=== PATIENT | female | born 1940 | race Caucasian/White ===

== ENCOUNTER 2018-03-29 10:51 | Emergency (ER) | payer OTHER ==
[~2018-03-29] VITALS: Ht 160 cm; Wt 63.5 kg
[2018-03-29 13:55] LABS: ABSOLUTE BASOPHIL COUNT 0 /CUMM (0.0-0.2); ABSOLUTE EOSINOPHIL COUNT 0.1 /CUMM (0.0-0.7); ABSOLUTE GRANULOCYTE CT 4.1 /CUMM (1.4-6.5); ABSOLUTE LYMPH COUNT 1.4 /CUMM (1.2-3.4); ABSOLUTE MONOCYTE COUNT 0.5 /CUMM (0.10-0.60); BASOPHIL % 0.5 % (0.0-2.0); EOSINOPHIL % 1.6 % (0-5); HEMATOCRIT 43.3 % (37-47); MEAN CORPUSCULAR HGB 29.5 PG (27.0-31.0); MEAN CORPUSCULAR HGB CONC 33.3 G/DL (33.0-37.0); MEAN CORPUSCULAR VOLUME 88.7 FL (81.0-99.0); MEAN PLATELET VOLUME 8.2 FL (7.4-10.4); PLATELET COUNT 271 /CUMM (130-400); RBC DISTRIBUTION WIDTH 14.4 % (11.5-14.5); RED BLOOD CELL CT 4.88 /CUMM (4.20-5.40); WHITE BLOOD CELL COUNT 6.1 /CUMM (4.8-10.8)
[2018-03-29 14:05] VITALS: BP 157/74
[2018-03-29] MEDS ORDERED: OMEPRAZOLE40 M1 PO (14:42)
[2018-03-29] MEDS ORDERED: MYRBETRIQ25 M1 PO (14:42)
[2018-03-29] MEDS ORDERED: VITAMIN C500 M6 PO (14:43)
[2018-03-29] MEDS ORDERED: CALTRATE 600 +1 EACH PO (14:43)
[2018-03-29] MEDS ORDERED: BIOTIN2500 MCG PO (14:44)
[2018-03-29] MEDS ORDERED: VITAMIN D1000 UNIT PO (14:44)
[2018-03-29] MEDS ORDERED: ASPIRIN EC81 M1 PO (14:44)
[2018-03-29] MEDS ORDERED: FISH OIL 1,2001 EACH PO (14:45)
--- NOTE | 2018-03-29 15:08 | CT SCAN REPORT ---
EXAMINATION: CT HEAD WITHOUT CONTRAST CLINICAL INFORMATION: Near syncope. COMPARISON: None TECHNIQUE: Contiguous axial imaging was performed from the skull base to vertex without intravenous administration of contrast. DLP: 531 mGy-cm FINDINGS: Brain parenchyma: Normal attenuation. [place]-white matter differentiation is well preserved. No evidence of an acute major vascular territory infarction, hemorrhage, mass or midline shift. Cerebrospinal fluid spaces: Normal. No hydrocephalus or extra-axial fluid collections. Cerebellum and brainstem: Unremarkable. The 4th ventricle is midline in position. The cerebellopontine angles are normal. Calvarium and temporomandibular joints: Calvarium is intact. Mastoid air cells and middle ear cavities are well aerated. Mild osteoarthritis of the TMJs. Paranasal sinuses and orbits: The visualized paranasal sinuses are clear. No acute findings in the visualized portions of the orbits. Other: No acute findings in the visualized extracranial soft tissues. IMPRESSION: No acute intracranial pathology.
[2018-03-29] MEDS ORDERED: MOTION SICKNESS25 M4 PO (15:34)
[2018-03-29] MEDS ORDERED: IMODIUM A-D2 M1 PO (15:34)
--- NOTE | 2018-03-29 15:36 | ED AMS/SEIZURE/WEAK/DIZZY ---
History of Present Illness General Chief Complaint: General Adult Stated Complaint: SIB FROM WALK IN FOR WEAKNESS, NOT FEELING WELL Source: patient Exam Limitations: no limitations Vital Signs & Intake/Output Vital Signs & Intake/Output Vital Signs Date Time Temp Pulse Resp B/P B/P Pulse O2 O2 Flow FiO2 Mean Ox Delivery Rate 03/29 1405 98.2 66 18 157/74 99 Room Air 03/29 1059 97.4 66 20 149/81 96 Room Air ED Intake and Output 03/30 0000 03/29 1200 Intake Total Output Total Balance Patient 140 lb Weight Weight Reported by Patient Measurement Method Allergies Coded Allergies: No Known Allergies (03/29/18) Reconcile Medications Ascorbate Calcium (Vitamin C) (Unknown Strength) TABLET (Unknown Dose) PO DAILY SUPPLEMENT (Reported) Aspirin (Ecotrin*) 81 MG TABLET. 1 TAB PO EOD HEART/BLOOD (Reported) Biotin (Unknown Strength) CAPSULE (Unknown Dose) PO DAILY SUPPLEMENT ( Reported) Calcium Carbonate/Vitamin D3 (Caltrate 600 + D Tablet) (Unknown Strength) TABLET (Unknown Dose) PO DAILY SUPPLEMENT (Reported) Cholecalciferol (Vitamin D3) (Vitamin D) 1,000 UNIT TABLET 1 TAB PO EOD SUPPLEMENT (Reported) Fish Oil/Dha/Epa (Fish Oil 1,200 MG Fish Oil) (Unknown Strength) CAPSULE ( Unknown Dose) PO DAILY SUPPLEMENT (Reported) Loperamide HCl (Imodium A-D) 2 MG TABLET 1 TAB PO PRN PRN Diarrhea Take 2 tabs PO now. Take 1 tablet as needed after a loose bowel movement. Max: 4 Tablets daily. Meclizine HCl (Motion Sickness Relief) 25 MG TAB.CHEW 1 TAB PO Q4-6 PRN Dizziness Mirabegron (Myrbetriq) 25 MG TAB.ER.24H 1 TAB PO DAILY BLADDER (Reported) Omeprazole 40 MG CAPSULE. 1 CAP PO DAILY GI (Reported) Triage Note: PT SIB WALK IN FOR WEAKNESS. PT STATES FOR THE PAST COUPLE WEEKS SHE HASN'T FELT RIGHT. PT DENIES CP/SOB. STATES SHE FEELS SHAKY AND LIGHTHEADED Triage Nurses Notes Reviewed? yes HPI: 77-year-old female with no significant past medical history presents to emergency department complaining of weakness and shakiness. Patient states the symptoms have been present for the past 4 weeks. The symptoms come and go. Patient often feels lightheaded like she is going to pass out. Symptoms resolved when she sits down. Today she woke up and had a large bowel movement. Shortly after when she went to stand up, she felt lightheaded. She then sat down and her symptoms resolved. She has been having intermittent bouts of watery diarrhea, typically 1-2 a day. She denies any chest pain or shortness of breath associated with the symptoms. No diaphoresis. Denies any recent fever or chills. Denies any kenia blood loss. No melena or blood in her stool. Denies abdominal pain, nausea, vomiting, or constipation. Denies headaches, numbness or tingling in her extremities, or vision changes. (Sterling Juarez PA-C) Past History Travel History Traveled to [place] past 21 day No Medical History Any Pertinent Medical History? none Surgical History Surgical History: none Psychosocial History What is your primary language Hungarian Tobacco Use: Never used ETOH Use: denies use Illicit Drug Use: denies illicit drug use Family History Hx Contributory? No (Sterling Juarez PA-C) Review of Systems Review of Systems Constitutional: Reports: no symptoms. EENTM: Reports: no symptoms. Respiratory: Reports: no symptoms. Cardiovascular: Reports: no symptoms. GI: Reports: no symptoms. Genitourinary: Reports: no symptoms. Musculoskeletal: Reports: no symptoms. Skin: Reports: no symptoms. Neurological/Psychological: Reports: see HPI. Hematologic/Endocrine: Reports: no symptoms. Immunologic/Allergic: Reports: no symptoms. All Other Systems: Reviewed and Negative (Sterling Juarez PA-C) Physical Exam Physical Exam General Appearance: well developed/nourished, no apparent distress Head: atraumatic, normal appearance Eyes: Bilateral: normal appearance, PERRL, EOMI. Ears, Nose, Throat: normal pharynx, normal ENT inspection, hearing grossly normal, moist mucus membranes Neck: normal inspection Respiratory: normal breath sounds, chest non-tender, no respiratory distress, quiet respiration, lungs clear Cardiovascular: regular rate/rhythm, No murmur, no LE edema Peripheral Pulses: 2+ radial (R), 2+ radial (L) Gastrointestinal: normal bowel sounds, soft, non-tender, No rebound or guarding, no palpable masses Extremities: normal range of motion, ambulatory with steady gait Neurologic/Psych: AXOX3, CN II-XII grossly intact, Strength 5/5 in bilateral upper and lower extremities, sensation grossly intact throughout, finger to nose and heel to ryan normal without ataxia, gait is steady, no pronator drift, speech fluent, DTR 2+ symmetric Reflexes: 2+: knee (R), knee (L). Skin: intact, normal color, warm/dry, No diaphoresis Core Measures ACS in differential dx? Yes CVA/TIA Diagnosis No Sepsis Present: No Sepsis Focused Exam Completed? No (Larry HILL,Sterling) Progress Differential Diagnosis: arrythmia, anemia, benign positional vertigo, CVA/stroke , dehydration, electrolyte imbalance, GI bleed, intracranial Hem., intracranial mass/tumor, presyncope, subarachnoid Hem., UTI/pyelo, vertebrobasilar insuff, orthostatic hypotension Plan of Care: Orders Procedure Date/time Status MISTAKE 03/29 1337 Active CULTURE,URINE 03/29 1336 Active URINALYSIS 03/29 1336 Complete TROPONIN LEVEL 03/29 1336 Complete COMPREHENSIVE METABOLIC PANEL 03/29 1336 Complete CREATINE PHOSPHOKINASE 03/29 1336 Complete CBC WITHOUT DIFFERENTIAL 03/29 1336 Complete EKG 03/29 1336 Active Laboratory Tests 03/29/18 1347: Anion Gap 10, Estimated GFR > 60, BUN/Creatinine Ratio 21.3, Glucose 108 H, Calcium 9.8, Total Bilirubin 0.6, AST 36, ALT 43, Alkaline Phosphatase 51, Creatine Kinase 45, Troponin I < 0.01, Total Protein 7.4, Albumin 4.6, Globulin 2.8, Albumin/Globulin Ratio 1.6, CBC w Diff NO MAN DIFF REQ, RBC 4.88, MCV 88.7, MCH 29.5, MCHC 33.3, RDW 14.4, MPV 8.2, Gran % 67.0, Lymphocytes % 22.4, Monocytes % 8.5, Eosinophils % 1.6, Basophils % 0.5, Absolute Granulocytes 4.1, Absolute Lymphocytes 1.4, Absolute Monocytes 0.5, Absolute Eosinophils 0.1, Absolute Basophils 0 03/29/18 1337: Urine Color YEL, Urine Clarity CLEAR, Urine pH 7.5, Ur Specific [place] 1.010, Urine Protein NEG, Urine Ketones TRACE H, Urine Nitrite NEG, Urine Bilirubin NEG, Urine Urobilinogen 0.2, Ur Leukocyte Esterase NEG, Ur Microscopic EXAM NOT REQUIRED, Urine Hemoglobin NEG, Urine Glucose NEG Microbiology 03/29 1337 URINE ROUT: Urine Culture - RECD Diagnostic Imaging: Viewed by Me: CT Scan. Discussed w/RAD: CT Scan. Radiology Impression: PATIENT: ARLIN OCAMPO PRESENT AGE: 77 PATIENT ACCOUNT NO: [id number] : 41 LOCATION: [facility] ORDERING PHYSICIAN: Sterling Juarez PA-C SERVICE DATE: 03/29/18 EXAM TYPE: CAT - CT HEAD WO IV CONTRAST EXAMINATION: CT HEAD WITHOUT CONTRAST CLINICAL INFORMATION: Near syncope. COMPARISON: None TECHNIQUE: Contiguous axial imaging was performed from the skull base to vertex without intravenous administration of contrast. DLP: 531 mGy-cm FINDINGS: Brain parenchyma: Normal attenuation. [place]-white matter differentiation is well preserved. No evidence of an acute major vascular territory infarction, hemorrhage, mass or midline shift. Cerebrospinal fluid spaces: Normal. No hydrocephalus or extra-axial fluid collections. Cerebellum and brainstem: Unremarkable. The 4th ventricle is midline in position. The cerebellopontine angles are normal. Calvarium and temporomandibular joints: Calvarium is intact. Mastoid air cells and middle ear cavities are well aerated. Mild osteoarthritis of the TMJs. Paranasal sinuses and orbits: The visualized paranasal sinuses are clear. No acute findings in the visualized portions of the orbits. Other: No acute findings in the visualized extracranial soft tissues. IMPRESSION: No acute intracranial pathology. DICTATED BY: Jacky Dorsey MD DATE/TIME DICTATED:03/29/181502 LAND SURVEYOR:MELISSA DATE/TIME TRANSCRIBED:03/29/181502 CONFIDENTIAL, DO NOT COPY WITHOUT APPROPRIATE AUTHORIZATION. <Electronically signed in Other Vendor System> SIGNED BY: Jacky Dorsey MD 03/29/181507 Initial ED EKG: nonspecific ST T wave chg, NSR at 57 BPM Prior EKG: unchanged Comments: 77-year-old female presenting with 4 weeks of intermittent dizziness/shakiness/ weakness. She was near syncope earlier today. Her symptoms resolved upon sitting down. Here in the emergency department she remains asymptomatic. She was monitored on equipment monitor phototypesetting without any evidence of arrhythmias. Her EKG was reviewed by ED attending Dr. Rivera and myself, normal sinus rhythm with nonspecific ST/T-wave changes. Her overall CT scan was negative. Her blood work is overall nonactionable. She had orthostatic vital signs which were within normal limits. Patient's blood pressure is low at baseline. She may have underlying orthostatic hypotension. She may have underlying vertigo. Patient also may be dehydrated due to recent bouts of diarrhea. Overall of low concern for CVA/TIA, ICH, ACS, acute abdomen. Patient was given a scopolamine patch. We will also give meclizine for dizziness. Imodium for diarrhea. She should follow-up with her doctor within 48 hours. Return immediately with any symptoms. She is in agreement with plan of care. Discussed with Dr. Rivera. (Sterling Juarez PA-C) Departure Departure Disposition: HOME OR SELF CARE Condition: Stable Clinical Impression Primary Impression: Dizziness Secondary Impressions: Diarrhea Qualifiers: Diarrhea type: unspecified type Qualified Code: R19.7 - Diarrhea, unspecified Near syncope Referrals: Marcos ADORNO,Emiliana Carrillo (PCP/Family) Additional Instructions: Take meclizine as needed for dizziness. You can wear the scopolamine patch for 72 hours. Take Imodium as needed for diarrhea. Return to the emergency department with any new or worsening symptoms including headache, vision changes , nausea, vomiting, etc. Please go over all results of today's visit with your primary care doctor. Contact your primary care doctor to let them know you were here in the emergency room. There may be nonspecific findings which may not be related to your visit today here in the emergency room but may require further evaluation and chronic monitoring by your primary care doctor. If you had a laceration today the chance of foreign body always remains. You should follow-up with your primary care doctor for recheck in 3-5 days for a wound check. If you had an x-ray done there is a chance that a fracture could have been missed on initial read and you should follow-up with your primary care doctor for repeat x-rays if symptoms persist. If your blood pressure was elevated here in the emergency room please have rechecked by yovani primary care doctor within the next 48. If you were prescribed a narcotic here in the emergency room or any type of controlled substances you're not allowed to drive while taking this medication or operate any type of heavy machinery. Narcotics can make you feel lightheaded dizziness nausea and can cause constipation. You may need to forklift picker a stool softener. Thank you for choosing [facility] emergency room. Please return to the emergency room immediately if you have any other concerns worsening of symptoms. Departure Forms: Customer Survey General Discharge Information Prescriptions: Current Visit Scripts Meclizine HCl (Motion Sickness Relief) 1 TAB PO Q4-6 PRN Dizziness #20 TAB Loperamide HCl (Imodium A-D) 1 TAB PO PRN PRN Diarrhea #20 TAB Take 2 tabs PO now. Take 1 tablet as needed after a loose bowel movement. Max: 4 Tablets daily. (Larry HILL,Sterling) PA/COMMUTATOR V RING ASSEMBLER Co-Sign Statement Statement: ED Attending supervision documentation- x I saw and evaluated the patient. I have also reviewed all the pertinent lab results and diagnostic results. I agree with the findings and the plan of care as documented in the PA's/COMMUTATOR V RING ASSEMBLER's documentation. [] I have reviewed the ED Record and agree with the PA's/COMMUTATOR V RING ASSEMBLER's documentation. [] Additions or exceptions (if any) to the PAs/COMMUTATOR V RING ASSEMBLER's note and plan are summarized below: [] (Nicole ADORNO,Roland)
== END 2018-03-29 15:41 ==
LOC: ERH 10:51
PROVIDERS: Physician Assistant
DX: R42 Dizziness and giddiness (principal); R19.7 Diarrhea, unspecified; R55 Syncope and collapse; R53.1 Weakness
CPT/HCPCS: 81003; 87086; 93005; 93010

== ENCOUNTER 2018-04-08 05:49 | Emergency (ER) | payer OTHER ==
[~2018-04-08] VITALS: Ht 157.5 cm; Wt 65.8 kg
[~2018-04-08 05:49] MED LIST: ASPIRIN EC81 M1 PO; BIOTIN2500 MCG PO; CALTRATE 600 +1 EACH PO; FISH OIL 1,2001 EACH PO; IMODIUM A-D2 M1 PO; MOTION SICKNESS25 M4 PO; MYRBETRIQ25 M1 PO; OMEPRAZOLE40 M1 PO; VITAMIN C500 M6 PO; VITAMIN D1000 UNIT PO
--- NOTE | 2018-04-08 06:07 | ED GENERAL ADULT ---
See Addendum History of Present Illness General Chief Complaint: General Adult Stated Complaint: SHE NEEDS TO BE ADMITED THIS IS THE 3RD TIME Source: patient, family, old records Exam Limitations: no limitations Vital Signs & Intake/Output Vital Signs & Intake/Output Vital Signs Date Time Temp Pulse Resp B/P B/P Pulse O2 O2 Flow FiO2 Mean Ox Delivery Rate 04/08 0800 97.8 72 20 117/60 99 Room Air 04/08 0559 97 Room Air 04/08 0556 98.3 75 18 166/74 99 Room Air Allergies Coded Allergies: No Known Allergies (03/29/18) Reconcile Medications Ascorbate Calcium (Vitamin C) (Unknown Strength) TABLET (Unknown Dose) PO DAILY SUPPLEMENT (Reported) Aspirin (Ecotrin*) 81 MG TABLET. 1 TAB PO EOD HEART/BLOOD (Reported) Biotin (Unknown Strength) CAPSULE (Unknown Dose) PO DAILY SUPPLEMENT ( Reported) Calcium Carbonate/Vitamin D3 (Caltrate 600 + D Tablet) (Unknown Strength) TABLET (Unknown Dose) PO DAILY SUPPLEMENT (Reported) Cholecalciferol (Vitamin D3) (Vitamin D) 1,000 UNIT TABLET 1 TAB PO EOD SUPPLEMENT (Reported) Fish Oil/Dha/Epa (Fish Oil 1,200 MG Fish Oil) (Unknown Strength) CAPSULE ( Unknown Dose) PO DAILY SUPPLEMENT (Reported) Loperamide HCl (Imodium A-D) 2 MG TABLET 1 TAB PO PRN PRN Diarrhea Take 2 tabs PO now. Take 1 tablet as needed after a loose bowel movement. Max: 4 Tablets daily. Meclizine HCl (Motion Sickness Relief) 25 MG TAB.CHEW 1 TAB PO Q4-6 PRN Dizziness Mirabegron (Myrbetriq) 25 MG TAB.ER.24H 1 TAB PO DAILY BLADDER (Reported) Omeprazole 40 MG CAPSULE. 1 CAP PO DAILY GI (Reported) Triage Note: PT FROM HOME C/O "SHAKING AND LIGHTHEADEDNESS" PER PT. PTS STATES "THIS IS THE 3RD TIME SHE HAS BEEN HERE WITHIN A FEW DAYS SHE NEEDS TO BE ADMITTED THIS IS CRAZY" PT IS A&0X3. PT APPEARS TO HAVE NO ACUTE DISTRESS NOTED. PT HAS +VALADEZ, PT MEDICATED AT HOME WITH 650MG TYLENOL PO AT 0500. DENIES N/V, CP, SOB, BILATERAL ARM NUMBNESS/TINGLING, JAW OR BACK PAIN. DR HALE IN FOR EVAL Triage Nurses Notes Reviewed? yes HPI: Patient returns to the emergency department because she still feels shaky and has no appetite. This is patient's third visit here in the past 10 days. Patient states that when she comes here and gets IV fluids she feels better and then goes home and then during the night she wakes up feeling very shaky and she is very concerned by it. Patient states that she also has anorexia. She denies any abdominal pain. There is no nausea or vomiting. There is no constipation or diarrhea. There are no fevers or chills. She states that she just has no desire to eat. Patient denies any suicidal or homicidal ideations. (Cortney ADORNO,Paul Silver) Past History Travel History Traveled to [place] past 21 day No Medical History Any Pertinent Medical History? none Neurological: NONE EENT: NONE Cardiovascular: NONE Respiratory: NONE Gastrointestinal: NONE Hepatic: NONE Renal: NONE Musculoskeletal: NONE Psychiatric: NONE Endocrine: NONE Blood Disorders: NONE Cancer(s): NONE LEARNING COORDINATOR/Reproductive: NONE Surgical History Surgical History: none Psychosocial History What is your primary language Mongolian Tobacco Use: Quit >30 days ago ETOH Use: denies use Illicit Drug Use: denies illicit drug use Family History Hx Contributory? No (Cortney ADORNO,Paul Silver) Review of Systems Review of Systems Constitutional: Reports: see HPI, unexplained weight loss. EENTM: Reports: no symptoms. Respiratory: Reports: no symptoms. Cardiovascular: Reports: no symptoms. GI: Reports: no symptoms. Genitourinary: Reports: no symptoms. Musculoskeletal: Reports: no symptoms. Skin: Reports: no symptoms. Neurological/Psychological: Reports: see HPI, anxiety. Hematologic/Endocrine: Reports: no symptoms. Immunologic/Allergic: Reports: no symptoms. All Other Systems: Reviewed and Negative (Cortney ADORNO,Paul Silver) Physical Exam Physical Exam General Appearance: well developed/nourished, alert, awake, anxious Head: atraumatic, normal appearance Eyes: Bilateral: PERRL, EOMI. Ears, Nose, Throat: normal pharynx, normal ENT inspection Neck: normal inspection, supple, full range of motion Respiratory: normal breath sounds, chest non-tender, no respiratory distress, lungs clear Cardiovascular: regular rate/rhythm, normal peripheral pulses Gastrointestinal: normal bowel sounds, soft, non-tender, no organomegaly Back: normal inspection, normal range of motion Extremities: normal inspection, normal capillary refill, normal range of motion, no edema Neurologic/Psych: no motor/sensory deficits, awake, alert, oriented x 3, normal mood/affect Skin: intact, normal color, warm/dry Lymphatic: no anterior cervical mirta Core Measures ACS in differential dx? No CVA/TIA Diagnosis: No Sepsis Present: No Sepsis Focused Exam Completed? No (Cortney ADORNO,Paul Silver) Progress Differential Diagnoses I considered the following diagnoses in my evaluation of the patient: [Anxiety, cancer, intrathoracic or intra-abdominal pathology] Plan of Care: Orders Procedure Date/time Status Add-on Test (ER Only) 04/08 817 Active URINE DRUG SCREEN FOR ER ONLY 04/08 817 Active ED CRISIS PSYCH CONSULT 04/08 712 Active TROPONIN LEVEL 04/08 618 Complete ETHANOL 04/08 618 Complete EKG 04/08 609 Active COMPREHENSIVE METABOLIC PANEL 04/08 606 Complete CBC WITHOUT DIFFERENTIAL 04/08 606 Complete Laboratory Tests 04/08/18617: Anion Gap 10, Estimated GFR > 60, BUN/Creatinine Ratio 20.0, Glucose 107 H, Calcium 9.3, Total Bilirubin 0.6, AST 29, ALT 34, Alkaline Phosphatase 45, Troponin I < 0.01, Total Protein 6.2 L, Albumin 3.8, Globulin 2.4, Albumin/ Globulin Ratio 1.6, CBC w Diff NO MAN DIFF REQ, RBC 4.51, MCV 88.4, MCH 29.9, MCHC 33.8, RDW 13.4, MPV 8.6, Gran % 63.7, Lymphocytes % 22.9, Monocytes % 11.2 H, Eosinophils % 1.8, Basophils % 0.4, Absolute Granulocytes 3.9, Absolute Lymphocytes 1.4, Absolute Monocytes 0.7 H, Absolute Eosinophils 0.1, Absolute Basophils 0, Serum Alcohol < 10.0 04/08/18608: Troponin I Cancelled Diagnostic Imaging: Viewed by Me: CT Scan. Discussed w/RAD: CT Scan. Initial ED EKG: NSR, nonspecific ST T wave chg Hand-Off Endorsed To: Pacheco Neely DO Endorsed Time: 0700 Pending: CT, consult, labs (Cortney ADORNO,Paul Silver) Departure Departure Disposition: HOME OR SELF CARE Condition: Stable Clinical Impression Primary Impression: Anxiety Referrals: Marcos ADORNO,Emiliana Carrillo (PCP/Family) Departure Forms: Customer Survey General Discharge Information (Cortney ADORNO,Paul Silver) Departure Comments 04/08/18 10:11 AM 77-year-old female was signed out to me by Dr. Hale. She is pending crisis evaluation. Labs are unremarkable. EKG scan of the chest abdomen and pelvis essentially unremarkable other than small pericardial effusion. (Chin OWEN,Pacheco Butler) Critical Care Note Critical Care Note Critical Care Time: non-applicable (Cortney ADORNO,Paul Silver)
[2018-04-08 06:29] LABS: ABSOLUTE BASOPHIL COUNT 0 /CUMM (0.0-0.2); ABSOLUTE EOSINOPHIL COUNT 0.1 /CUMM (0.0-0.7); ABSOLUTE GRANULOCYTE CT 3.9 /CUMM (1.4-6.5); ABSOLUTE LYMPH COUNT 1.4 /CUMM (1.2-3.4); ABSOLUTE MONOCYTE COUNT 0.7 /CUMM (0.10-0.60); BASOPHIL % 0.4 % (0.0-2.0); EOSINOPHIL % 1.8 % (0-5); GRANULOCYTE % 63.7 % (42.2-75.2); HEMATOCRIT 39.9 % (37-47); MEAN CORPUSCULAR HGB 29.9 PG (27.0-31.0); MEAN CORPUSCULAR HGB CONC 33.8 G/DL (33.0-37.0); MEAN CORPUSCULAR VOLUME 88.4 FL (81.0-99.0); MEAN PLATELET VOLUME 8.6 FL (7.4-10.4); PLATELET COUNT 211 /CUMM (130-400); RBC DISTRIBUTION WIDTH 13.4 % (11.5-14.5); RED BLOOD CELL CT 4.51 /CUMM (4.20-5.40); WHITE BLOOD CELL COUNT 6.1 /CUMM (4.8-10.8)
--- NOTE | 2018-04-08 07:25 | CT SCAN REPORT ---
EXAMINATION: CT CHEST, ABDOMEN AND PELVIS CLINICAL INFORMATION: Weight loss. Anxiety. Possible cancer. COMPARISON: CT head 03/29/2018 TECHNIQUE: IV contrast enhanced CT of the chest, abdomen pelvis. Intravenous contrast: Optiray 320 95 mL. DLP: 370 mGy-cm FINDINGS: CT chest: No mediastinal or axillary lymphadenopathy is identified. Mild scattered aortic calcific atherosclerosis is noted. The main and central pulmonary arteries are grossly normal in appearance. The heart size is grossly normal. Small pericardial effusion is present measuring 7 mm in maximum width. Mild biapical pleural parenchymal scarring of the lungs is noted. A coarse linear benign-appearing reticular density is present in the left lung base and may represent subpleural scarring or possibly platelike atelectasis. No suspicious pulmonary nodules are noted. No pulmonary airspace disease is identified. CT abdomen and pelvis: The liver, gallbladder, spleen, stomach, pancreas, adrenal glands and kidneys are normal in appearance. Mild scattered calcific atherosclerosis is present throughout the abdomen pelvis. The abdominal aorta is normal in caliber. Mild sigmoid diverticulosis is noted without findings to suggest acute diverticulitis. The appendix is normal in appearance. The sigmoid and small bowel mesentery is demonstrate no abnormalities. Scattered pelvic phleboliths are visualized. No gross adnexal lesions are noted. The uterus is grossly normal in appearance as is the urinary bladder which is physiologically distended. No abdominal wall hernias are noted. No pelvic lymphadenopathy is visualized. No vertebral body compression deformities are identified. Moderate bilateral facet hypertrophic changes are present at L5-S1 and are accompanied by 3 mm degenerative type anterolisthesis of L5 on S1. Partial visualization is made of moderate posterior broad-based disc bulges at L4-L5 and L5-S1. No suspicious skeletal lesions are identified. IMPRESSION: 1. Small pericardial effusion measuring 7 mm in width. No evidence of pericardial thickening. Grossly normal cardiac size. Normal appearance of the main and central pulmonary arteries without evidence of pulmonary ectasia to suggest pulmonary hypertension. The etiology of the pericardial effusion is without a specific imaging correlate but may be secondary to infection, hypothyroidism or other etiologies. 2. CT of the chest, abdomen pelvis negative for neoplasm. 3. Mild scattered calcific atherosclerosis. 4. Mild-moderate multilevel chronic spondylosis of the lower lumbar spine. 5. Mild sigmoid diverticulosis without evidence of diverticulitis.
[2018-04-08 10:54] VITALS: BP 118/66
--- NOTE | 2018-04-08 11:02 | ED PSYCH CRISIS CONSULTATION ---
Crisis Consult Basic Assessment Date of Consult: 04/08/18 Responsible Person/Accompanied By: self/ accompanied by spouse Insurance Authorization: Insurance #1: Insurance name: [facility] MEDIC[facility] PLAN Phone number: Policy number: [id number] Group number: [id number] Authorization number: ED Provider: Patient's ED Provider: Cortney ADORNO,Paul Silver Primary Care Physician: Patient's PCP: Emiliana Rodríguez MD PCP's Current Psychiatrist: none Chief Complaint: anxiety and panic Patient's Quote: I woke up and was terrified I had a brain tumor... like my cousin. Present Illness: Pt is a 77 y.o. m/w/f who comes to the ED accompanied by her spouse for the second time in 2 days and the third time in 2 weeks. Pt reports she woke up this morning, not feeling well. She reports light headed, foggy, racing heart, feelings of doom and needing to come to the ED immediately. Pt 's spouse notes that pt woke up fearing a brain tumor. Just prior to arriving, she starts to feel better. She was given a Benzo in the ED and finds relief. Pt speaks of not really having an appetite and now worrying about dehydration because her first visit found some dehydration. Pt and spouse report pt sx began after she learned her cousin/ best friend was dx with a brain tumor and was given a year to live. Pt lost her brother (1/4 sibs)in 2016 suddenly to cardiac illness. Pt spouse also has unclear health issue but looks fit. Pt has been medically cleared. Pt is a healthy adult/mother/ . She is pending the results of a thyroid lab which was added on today. Pt has one prescription for a urinary incontinence issues and she has been taking it for 2 years. Another source of anxiety for pt is that her long time MD is getting ready to retire and she is scheduled to see another MD in the practice tomorrow. Pt spouse and dtr report they have seen pt's increase anxiety but that they have not discussed it with her. Pt has no hx of ETOH/substances or mental health care or meds. She does not have a family hx either. She was attending exercise and driving her car until her first panic attack or dehydration visit to ED. Pt educated on what is panic and anxiety and the importance of not feeding anxiety but managing it. Pt instructed on coping skills including breathing, self talking and mindfulness. Pt , spouse and sw practiced breathing with useful self talk sentences. Education on the dangers of benzo in the elderly provided; Safety and usefulness of low dose SSRI/ antidepressant provided to pt and spouse. Discussed that ED would not start pt on this, but that pt should discuss with PCP tomorrow, so that pcp can follow pt. Also discussed geriatric MD, psychiatrist, 1:1 counseling and relaxation apps. Pt encouraged to return to driving and exercise ROSIE, so to not let anxiety control her and disable her. Pt's mother lived to be 101. Father in his 60 of cardiac issues. Pt's spouse is a support. MD Chin came into pt's room while we were speaking and reported pt cleared with a few follow ups with pcp. Folstein missing two recalls. Pt is alert, ambulating independently to the bathroom, pleasants, calm and cooperative. She denies SI/HI/AH/VH and there are no overt signs and sx of psychosis. She is future focused and organized in her thoughts. Pt occasionally takes melanotan for sleep; less than monthly. She falls asleep without difficulty but in the morning seems to wake with panic. Lately, falling asleep in her books and [employer]. She makes eye contact and is able to teach back information on anxiety/ depression, coping, eating, exercise and sleep and going to pcp to discuss med options if needed. Pt discussed with Franky Lagunas MD who agreed with plan to discharge pt home with spouse to follow up with pcp as scheduled tomorrow for panic and anxiety. Pt agreeable to work on skills we discussed and to work on healthy eating and exercise as well. Patient's Address: [address] [place] [address] Other Phone Number: Who Do You Live With? Spouse Family/Informants Interviewed: spouse present Allergies - Coded Allergies: No Known Allergies (03/29/18) Current Medications - Scheduled Medications Ascorbate Calcium (Vitamin C) (Unknown Strength) TABLET (Unknown Dose) PO DAILY SUPPLEMENT (Reported) Entered as Reported by Maria A Sesay on 03/29/18 1743 Aspirin (Ecotrin*) 81 MG TABLET. 1 TAB PO EOD HEART/BLOOD (Reported) Entered as Reported by Maria A Sesay on 03/29/18 1444 Biotin (Unknown Strength) CAPSULE (Unknown Dose) PO DAILY SUPPLEMENT ( Reported) Entered as Reported by Maria A Sesay on 03/29/18 1444 Calcium Carbonate/Vitamin D3 (Caltrate 600 + D Tablet) (Unknown Strength) TABLET (Unknown Dose) PO DAILY SUPPLEMENT (Reported) Entered as Reported by Maria A Sesay on 03/29/18 1443 Cholecalciferol (Vitamin D3) (Vitamin D) 1,000 UNIT TABLET 1 TAB PO EOD SUPPLEMENT (Reported) Entered as Reported by Maria A Sesay on 03/29/18 1444 Fish Oil/Dha/Epa (Fish Oil 1,200 MG Fish Oil) (Unknown Strength) CAPSULE ( Unknown Dose) PO DAILY SUPPLEMENT (Reported) Entered as Reported by Maria A Sesay on 03/29/18 1445 Mirabegron (Myrbetriq) 25 MG TAB.ER.24H 1 TAB PO DAILY BLADDER #30 (Reported) Entered as Reported by Maria A Sesay on 03/29/18 1442 Omeprazole 40 MG CAPSULE. 1 CAP PO DAILY GI #30 (Reported) Entered as Reported by Maria A Sesay on 03/29/18 1442 Scheduled PRN Medications Loperamide HCl (Imodium A-D) 2 MG TABLET 1 TAB PO PRN PRN Diarrhea #20 TAB Prescribed by Sterling Ford on 03/29/18 Meclizine HCl (Motion Sickness Relief) 25 MG TAB.CHEW 1 TAB PO Q4-6 PRN Dizziness #20 TAB Prescribed by Sterling Ford on 03/29/18 Laboratory Results: Laboratory Tests 04/08/1818: Anion Gap 10, Estimated GFR > 60, BUN/Creatinine Ratio 20.0, Glucose 107 H, Calcium 9.3, Total Bilirubin 0.6, AST 29, ALT 34, Alkaline Phosphatase 45, Troponin I < 0.01, Total Protein 6.2 L, Albumin 3.8, Globulin 2.4, Albumin/ Globulin Ratio 1.6, TSH 1.400, Thyroxine (T4) 10.1, CBC w Diff NO MAN DIFF REQ, RBC 4.51, MCV 88.4, MCH 29.9, MCHC 33.8, RDW 13.4, MPV 8.6, Gran % 63.7, Lymphocytes % 22.9, Monocytes % 11.2 H, Eosinophils % 1.8, Basophils % 0.4, Absolute Granulocytes 3.9, Absolute Lymphocytes 1.4, Absolute Monocytes 0.7 H, Absolute Eosinophils 0.1, Absolute Basophils 0, Serum Alcohol < 10.0 04/08/18 0609: Troponin I Cancelled Past History Past Medical History Neurological: NONE EENT: NONE Cardiovascular: NONE Respiratory: NONE Gastrointestinal: NONE Hepatic: NONE Renal: NONE Musculoskeletal: NONE Psychiatric: NONE Endocrine: NONE Blood Disorders: NONE Cancer(s): NONE ACCORDION TUNER/Reproductive: NONE Past Surgical History Surgical History: 1 Psychosocial History Strengths/Capabilities: healthy female with friends and hobbies. independent in ambulation Physical Limitations (Interventions): none, but anxiety preventing her from driving this month. Psychiatric Treatment History Psych Treatment Psychiatric Treatment No Inpatient Treatment No Outpatient Treatment No Substance Use/Abuse History Drug Use/Abuse Substances Used/Abused No Substance Abuse Treatment Substance Abuse Treatment Past Substance Abuse [place] No Inpatient Treatment No Current Mental Status Mental Status Orientation: Person, Place, Situation Affect: Appropriate Speech: WNL Neuro-vegetative: Appetite Decreased, Concentration Poor (starting marina impacted by sx) Appearance Appearance- Dress/Hygiene: neatly groomed in hosp. clothing Behaviors Thought Process: anxiety/ worried noted in thoughts Thought Content: WNL (some fearful with panic) Memory: WNL Insight: WNL SI/HI Risk Assessment Past Suicidal Ideation/Attempts No Current Suicidal Ideation/Att No Past Homicidal Ideation/Att: No Current Homicidal Ideation/Attempts No Degree of Intent: None PTSD Checklist PTSD Score: PTSD Score: Response Value Disturbing memories,thoughts,images of stressful experience? Not at all 1 Disturbing dreams of stressful experience from past? Not at all 1 Suddenly acting/feeling as if reliving stressful experience? Not at all 1 Total 3 ED Management Sitter: No Restraints: No DSM5/PS Stressors/Medical Prob Diagnosis' (DSM 5, Stressors, Medical): panic disorder urinary incontinence Current GAF: 65 Comments: Pt with panic and anxiety able to accept education and skill building which had a postive impact on how pt was feeling. Pt to attempt to implement skills and will discuss other options with pcp tomorrow. Pt medically cleared which was also helpful. Departure Disposition Psych Medical Clearance Date: 04/08/18 Psychiatrist Consulted: Vangie Date Disposition Established: 04/08/18 Time Disposition Established: 0110 Plan for Disposition - Modality: Pcp (consider meds) and implement skills. Consider grief and 1:1 counseling Rationale for Disposition: Pt with anxiety and panic, denies SI/HI/AH/VH. Improving sx with medical clearance and identifying illness of panic. Recent Grief. Education provided. discussed with Vangie ADORNO and agree with plan to discharge home with spoue and followup with pcp to assess if coping skils are enoughor meds should be considered and followed by pcp. Pt is alert and oriented and supported by family. Additional Instructions: follow up as ED medical MD suggested Referrals Marcos ADORNO,Emiliana Carrillo (PCP/Family)
== END 2018-04-08 11:08 ==
LOC: ERH 05:49
PROVIDERS: Emergency Medicine
DX: F41.9 Anxiety disorder, unspecified (principal)
CPT/HCPCS: 74177; 80307; 93005; 93010; G0463; G0480